=== PATIENT | female | born 1955 | race Two or more races ===

== ENCOUNTER 2024-04-25 22:04 | Emergency (ER) | payer MEDICARE, MEDICAID, SELFPAY ==
[2024-04-25 22:56] VITALS: BP 142/78; PULSE 87; RESP 18; TEMP 36.9; O2SAT 100; BMI 29.2
--- NOTE | 2024-04-25 23:18 | XR_ITS ---
Examination: Knee, left , 3 views Technique: Knee AP, lateral, oblique 3 views Date and time of exam: April 25, 2024 11:58 PM Indications: Twisting injury to the knee today, knee pain. Findings: Significant osteopenia No fracture or dislocation Significant chondromalacia patella Impression: No fracture
--- NOTE | 2024-04-26 01:45 | PD.EDLOWEX ---
Lower Extremity Injury RME/HPI General Chief Complaint: Extremity Problem,Nontraumatic Stated Complaint: LEFT KNEE PAIN Time Seen by Provider: 04/25/24 23:17 Arrival date/time: 04/25/24 22:04 68F with history of HTN and DM presents to ED with L knee pain after she twisted it. Patient denies falling. Limitations: no limitations Related Data Home Medications ?Medication ?Instructions ?Recorded ?Confirmed lisinopril 20 mg tablet 40 mg PO DAILY ##0 01/23/13 06/12/20 metformin 500 mg tablet 500 mg PO BIDAC #0 tabs 04/30/15 06/12/20 (Glucophage) atorvastatin 40 mg tablet 40 mg PO QDAY 06/12/20 06/12/20 cholecalciferol (vitamin D3) 50 50 mcg PO QDAY 06/12/20 06/12/20 mcg (2,000 unit) capsule (Vitamin D3) hydrochlorothiazide 25 mg tablet 25 mg PO QAM 06/12/20 06/12/20 metoprolol tartrate 25 mg tablet 25 mg PO DAILY 06/12/20 06/12/20 Previous Rx's ?Medication ?Instructions ?Recorded sulfamethoxazole 800 1 tab PO BID #10 tabs 06/15/20 mg-trimethoprim 160 mg tablet (Bactrim DS) pantoprazole 40 mg tablet,delayed 40 mg PO QDAY #20 tabs 12/23/23 release (Protonix) Allergies Allergy/AdvReac Type Severity Reaction Status Date / Time codeine Allergy Severe SOB Verified 12/23/23 18:35 Review of Systems Review of Systems Systems Reviewed: All systems reviewed, normal except as documented Constitutional Constitutional: Reports system reviewed and no additional complaints, except as documented, Denies fever(s) and Denies headache(s) ENT Ears, Nose, Mouth, and Throat: Denies disequilibrium and Denies headache(s) Cardiovascular Cardiovascular: Reports system reviewed and no additional complaints, except as documented, Denies chest pain and Denies dyspnea Respiratory Respiratory: Reports system reviewed and no additional complaints, except as documented, Denies cough and Denies dyspnea Gastrointestinal Gastrointestinal: Reports system reviewed and no additional complaints, except as documented, Denies abdominal pain, Denies nausea and Denies vomiting Musculoskeletal Musculoskeletal: Reports as per HPI, Reports arthralgias and Reports joint swelling Neurologic Neurologic: Reports system reviewed and no additional complaints, except as documented, Denies confusion, Denies disequilibrium and Denies headache(s) Psychiatric Psychiatric: Denies confusion Past Medical History Past Medical History NEUROLOGIC: Negative Neurological Disorders, Cerebrovascular Accident, Transient Ischemic Attacks (TIA), Dementia, Alzheimer's Disease, Parkinson's Disease, Brain Tumor, Meningitis, Seizures, Epilepsy, Multiple Sclerosis, Cerebral Palsy, Amyotrophic Lateral Sclerosis (ALS/Claudia Gehrig's), Guillain-Newborn Syndrome, Spina Bifida, Paralysis, Peripheral Neuropathy, Orantes's Palsy, Subdural Hematoma, Migraine, Head Trauma, Spinal Cord Injury or Traumatic Brain Injury CARDIAC: Positive Cardiac Disorders, Angina (?), Hypercholesterolemia (TAKES MED) and Hypertension (TAKES MED); Negative Myocardial Infarction, Cardiac Arrhythmia, Atrial Fibrillation, Heart Murmur, Coronary Artery Disease, Atherosclerotic Heart Disease, Peripheral Vascular Disease, Aneurysm, Congestive Heart Failure, Congenital Heart Disease, Valvular Heart Disease, Rheumatic Fever, Cardiomyopathy, Edema, Pericarditis, Cellulitis, Deep Vein Thrombosis, Hypotension or Varicose Veins RESPIRATORY: Positive Tuberculosis (1989 TREATED); Negative Chronic Obstructive Pulmonary Disease (COPD), Asthma, Bronchitis, Emphysema, Pneumonia, Pulmonary Fibrosis, Cystic Fibrosis, Pulmonary Embolism, Pulmonary Edema or Sleep Apnea GASTROINTESTINAL: Positive Gastrointestinal Disorders and Gastroesophageal Reflux Disease; Negative Hepatitis, Cirrhosis, Pancreatitis, Celiac Disease, Gall Bladder Disease, Gastrointestinal Bleed, Esophageal Varices, Aj's Esophagus, Colitis, Ulcerative Colitis, Diverticulitis, Diverticulosis, Ulcer, Colorectal Cancer, Irritable Bowel, Crohn's Disease, Obstructive Bowel, Hiatal Hernia, Hemorrhoids or Obesity GENITOURINARY: Negative Genitourinary Disorders, Renal Disease, Kidney Stones, Polycystic Kidney Disease, Neurogenic Bladder, Inguinal Hernia, Dialysis, Prostate Cancer or Benign Prostatic Hyperplasia REPRODUCTIVE: Positive Previous Pregnancies (X2); Negative Breast Cancer, Endometriosis, Genital Herpes, Gonorrhea, Pelvic Inflammatory Disease, Syphilis, Testicular Cancer or Uterine Prolapse MUSCULOSKELETAL: Positive Musculoskeletal Disorders, Arthritis and Fractures (RIGHT ARM FOR THIS PROC); Negative Muscular Dystrophy, Myasthenia Gravis, Marfan's Syndrome, Bone Cancer, Rheumatoid Arthritis, Osteoporosis, Degenerative Disk Disease, Gout, Scoliosis, Carpal Tunnel Syndrome, Fibromyalgia, Degenerative Joint Disease, Osteomyelitis or Poliovirus ENT: Negative Cataracts, Glaucoma, Blind, Retinal Detachment, Macular Degeneration, Ear Infection, Deafness, Head Trauma or Eye Prosthesis ENDOCRINE: Positive Endocrine Disorders and Diabetes Mellitus Type 2 (TAKES PO MED); Negative Diabetes Mellitus Type 1, Hypoglycemia, Noemi's Syndrome, Wilman's Disease, Hyperthyroidism, Hypothyroidism, Parathyroid Disease, Pituitary Disease, Systemic Lupus Erythematosus, Syndrome of Inappropriate Antidiuretic Hormone (SIADH), Adrenal Disease or Graves' Disease HEMATOLOGIC: Negative Blood Disorders, Anemia, Leukemia, Hemophilia, Thalassemia, Sickle Cell Disease or Clotting Problems PSYCHO/SOCIAL: Negative Psychiatric Problems, Schizophrenia, Recreational Drug Use, Bipolar Disorder, Depression, Anxiety, Behavior Problems, Self-Mutilation, Attention Deficit Disorder, Attention Deficit Hyperactivity Disorder, Depression, Post Traumatic Stress Disorder or Eating Disorder OTHER HISTORY: Positive Hospitalization (HOSP FOR 2017 FOR HIGH B/P), Falls (05/27/20), Chicken Pox and Measles; Negative Autoimmune Disease, Down Syndrome, Autism, Developmental Delay, Shingles, Blood Transfusions, Blood Transfusion Reaction, Anesthesia Reactions, Organ Transplant, Chemotherapy, Radiation Therapy, Hyperbaric Therapy, MRSA, VRSA, Vancomycin-Resistant Enterococci, Human Immunodeficiency Virus (HIV), Mumps, Rubella (Armenian Measles), Pertussis, Clostridium Difficile, Breast Cancer, Cervical Cancer, Colorectal Cancer, Lung Cancer, Ovarian Cancer, Prostate Cancer or Testicular Cancer Family History FAMILY HISTORY: Positive Family Respiratory Disorders (SISTER (ASTHMA)), Family Cardiac Disorders (BROTHER (HTN)) and Family Surgery (MOTHER,BROTHER); Negative Family Psychiatric Problems, Family Gastrointestinal Problems, Family Cancer or Family Anesthesia Reaction Surgical History SURGICAL: Positive Hysterectomy (GINNY WITH HENRY SALP) and Section (X2); Negative Cardiac Surgery, Open Heart Surgery, Coronary Artery Bypass Graft, Valve Replacement, Vascular Surgery, Coronary Stent, Cardiac Catheterization, Pacemaker, Angiogram, Auto Implanted Cardiovert Defib, Carotid Endarterectomy, Endocrine Surgery, Thyroidectomy, Ear Surgery, Tympanostomy Tube, Eye Surgery, Nose Surgery, Oral Surgery, Tonsillectomy, Adenoidectomy, Cochlear Implant, Corneal Transplant, Throat Surgery, Abdominal Surgery, Tracheostomy, Gastric Bypass Surgery, Gastrostomy, Bowel Surgery, Nephrectomy, Transurethral Resection, Joint Replacement, Amputation, Open Reduction Internal Fixation, Arthroscopy, Neurologic Surgery, Brain Shunt, Mastectomy, Lumpectomy, Tubal Ligation, Vasectomy or Organ Transplant Social History SMOKING STATUS: Never smoker SECOND HAND EXPOSURE: No ED Exam General Limitations: Present no limitations General appearance: Present alert and in no apparent distress Head Head exam: Present atraumatic Eye Eye exam: Present normal appearance, PERRL and EOMI ENT ENT exam: Present normal exam, normal oropharynx and mucous membranes moist Neck Neck exam: Present normal inspection, full ROM and trachea midline Chest Chest inspection: Present normal inspection and symmetric chest wall rise Respiratory Respiratory exam: Present normal lung sounds bilaterally Cardiovascular Cardiovascular exam: Present regular rate, normal rhythm and normal heart sounds Abdominal Exam Abdominal exam: Present soft and normal bowel sounds Extremities Exam Extremities exam: Present full ROM Expanded Lower Extremity Exam Knee exam: Present full ROM (L), tenderness and swelling Back Exam Back exam: Present normal inspection and full ROM Neurological Exam Neurological exam: Present alert, oriented X3 and CN II-XII intact Psychiatric Psychiatric exam: Present normal affect and normal mood Skin Skin exam: Present warm, dry, intact and normal color Course Quality Measures none Orders Category Date Time Status Crutches .NOW Care 04/26/24 00:22 Completed meño wrap [Splint / Immobilizer] STAT Care 04/26/24 00:22 Completed XR knee LT 3V Stat Exams 04/25/24 23:18 Completed Vital Signs Vital signs: Vital Signs Temperature 98.5 F 04/25/24 22:56 Pulse Rate 87 04/25/24 22:56 Respiratory Rate 18 04/25/24 22:56 Blood Pressure 142/78 H 04/25/24 22:56 Pulse Oximetry (%) 100 04/25/24 22:56 Oxygen Delivery Method Room Air 04/25/24 22:56 O2 at 100% on RA and WNLs Extremity Injury, Lower MDM Narrative MDM Narrative:: 68F with history of HTN and DM presents to ED with L knee pain after she twisted it. Patient denies falling. Physical exam reveals L knee tenderness and swelling, but normal ROM. Gait mostly intact. Patient is afebrile, calm, and alert. XR no fx. Given MEÑO, credit counselor, and crutches. Patient data External records reviewed:: [facility] previous records Clinical information provided by:: patient Social determinants that could affect healthcare access:: none Patient has the following chronic illnesses:: HTN and DM How is presenting disease/condition affected by chronic disease/condition?: uneffected by Evaluation data The following diagnostics were reviewed and interpreted by me:: radiology exam(s) Lab and/or radiology exams considered but not ordered:: ordered Interpretation Summary: above Medications / Prescriptions Medications or Prescriptions considered but not ordered:: not ordered Medication administrations:: n/a Consultations Consultation(s) initiated? (list below): No Diagnosis Extremity Injury, Lower Differential Diagnosis: ankle sprain and strain, acute internal derangement of knee, fracture of femur, fracture of hip, puncture wound of foot, fracture of toe and ankle fracture Most likely diagnosis given after review of the tests above:: acute internal derangement of knee Admission Indicated Admission indicated?: not indicated Admission Request Was there a request for admission?: No Disposition Plan Disposition Plan: Discharge Discharge Attestation Discharge Attestation: The patient and all family members were given an opportunity to ask questions and understood the discharge instructions. Discharge instructions specifically effects, indications for sooner follow up or return to the emergency department, and the expected course of current diagnosis. Patient condition: Stable Discharge Plan Plan Patient Disposition: HOME (Self Care) Disposition Comment: Stable Prescriptions/Referrals Prescriptions/Med Rec: No Action lisinopril 20 MG tablet 40 mg PO DAILY Qty: 0 metformin [Glucophage] 500 MG tablet 500 mg PO BIDAC Qty: 0 atorvastatin 40 mg Tablet 40 mg PO QDAY hydrochlorothiazide 25 mg Tablet 25 mg PO QAM cholecalciferol (vitamin D3) [Vitamin D3] 50 mcg (2,000 unit) Capsule 50 mcg PO QDAY metoprolol tartrate 25 mg tablet 25 mg PO DAILY sulfamethoxazole-trimethoprim [Bactrim DS] 800-160 mg tablet 1 tab PO BID Qty: 10 0RF pantoprazole [Protonix] 40 mg tablet,delayed release (DR/EC) 40 mg PO QDAY Qty: 20 0RF Referrals: Johny Pichardo MD [Primary Care Provider] - In 1 week Problem List Clinical Impression: Acute internal derangement of knee Patient/Caregiver Discharge Instructions Education Materials: How Your Knee Works Additional Instructions: Please follow-up with PCP within 24-48 hours and return immediately if symptoms worsen. If problem persists, recommend outpatient PT and/or MRI follow-up. In the meantime, rest, use ice/heat, and/or compression. Print Language: Upper Sorbian Stand Alone Forms: Patient Portal Info Letter PA/RUBBER GOODS FINISHER Supervising Physician PA/RUBBER GOODS FINISHER Supervising Physician: Dr. Mejia
== END 2024-04-26 00:54 | disposition home or self-care (01) ==
PROVIDERS: Emergency Provider Emergency Medicine; PCP Family Medicine
DX: M23.92 Unspecified internal derangement of left knee (principal); S89.92XA Unspecified injury of left lower leg, initial encounter; I10 Essential (primary) hypertension; E11.9 Type 2 diabetes mellitus without complications; X50.1XXA Overexertion from prolonged static or awkward postures, initial encounter; Z88.5 Allergy status to narcotic agent
CPT/HCPCS: 73562; 99283

== ENCOUNTER 2024-08-07 14:31 | Emergency (ER) | payer MEDICARE, MEDICAID, SELFPAY ==
[2024-08-07 14:44] VITALS: BP 162/97; PULSE 91; RESP 18; TEMP 37.7; O2SAT 97
--- NOTE | 2024-08-07 14:55 | XR_ITS ---
Examination: PA lateral chest 2 views TECHNIQUE: Upright PA lateral chest 2 views Date and time: August 07, 2024 1544 hours INDICATIONS: Chest pain beginning 4 days ago FINDINGS: Normal heart size Lungs are clear. Osseous structures are intact IMPRESSION: No active disease
--- NOTE | 2024-08-07 14:55 | EKG_ITS ---
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[id number] Requested By: Jimenez Winslow (WINDOW TRIMMER APPRENTICE) Order Number: [id number] Reading MD: Jimenez Winslow (WINDOW TRIMMER APPRENTICE) Measurements Intervals [place] Rate: 84 P: 12 FL: 145 QRS: -37 QRSD: 143 T: 104 QT: 381 QTc: 452 Interpretive Statements SINUS RHYTHM LEFT AXIS DEVIATION [QRS AXIS < -30] LEFT BUNDLE BRANCH BLOCK [120+ ms QRS DURATION, 80+ ms Q/S IN V1/V2, 85+ ms R IN I/aVL/V5/V6] Compared to ECG 12/23/2023 18:49:12 Left-axis deviation now present Left bundle-branch block now present Myocardial infarct finding no longer present /store/S0/[id number]/[id number].pdf
--- NOTE | 2024-08-07 14:55 | XR_ITS ---
Examination: CT brain head without contrast. 2-D sagittal coronal reconstructions Date and time of exam:August 07, 2024 1657 hours Comparison April 09, 2017 INDICATIONS: Generalized set pain today CTDI: vol (mGy):43.5 DLP: (mGycm):843 Technique: Multiple CT axial sections of the brain have been obtained, 5 mm slice thickness. Contrast has not been administered. 2-D sagittal, coronal reconstructions have been obtained Low dose protocols were performed. One or more of the following dose reduction techniques were used; automated exposure control, adjustment of the mA and/or KV according to patient size, use of iterative reconstruction technique. Findings: No significant ventricular enlargement. Intra-axial or extra-axial hemorrhage density is not seen. No mass effect or midline shift Basal cisterns are not remarkable. Fourth ventricle is midline. Cranial vault intact. Impression: Negative for acute hemorrhage, mass effect or midline shift Significant chronic left maxillary left ethmoid sinusitis
--- NOTE | 2024-08-07 14:56 | XR_ITS ---
Examination: AP lateral soft tissue neck 2 views TECHNIQUE: AP lateral soft tissue neck 2 views Date and time: August 07, 2024 1545 hours INDICATIONS: Sore throat 4 days, with difficulty speaking FINDINGS: Epiglottis does not appear thickened No prevertebral soft tissue prominence Moderate disc narrowing C5-C6 with posterior osteophyte formation IMPRESSION: Epiglottis does not appear thickened
--- NOTE | 2024-08-07 14:56 | PD.EDRME ---
Rapid Medical Screening Exam RME Arrival date/time: 08/07/24 14:31 68-year-old female presents to the emergency department complaints of sore throat reports that she lost her voice patient was reports dizziness headache and weakness Chief Complaint: Dental/Oral/Throat Time Seen by Provider: 08/07/24 14:50 Vital signs: Vital Signs Temperature 99.9 F 08/07/24 14:44 Pulse Rate 91 08/07/24 14:44 Respiratory Rate 18 08/07/24 14:44 Blood Pressure 162/97 H 08/07/24 14:44 Pulse Oximetry (%) 97 08/07/24 14:44 Oxygen Delivery Method Room Air 08/07/24 14:44
--- NOTE | 2024-08-07 15:01 | PC.NURSE ---
Pt was made aware that provider ordered a Covid test. Pt stated she tested herself at home for Covid and that is was negative. Pt did not want to test for Covid but agreed to test for Flu and Strep.
[2024-08-07 15:34] LABS: Strep A Rapid Negative (Negative)
[2024-08-07 15:44] LABS: Basophils # (Auto) 0.1 Thou/mm3 (0.0-0.2); Basophils % (Auto) 1 % (0-2.5); Eosinophils # (Auto) 0.2 Thou/mm3 (0.0-0.5); Eosinophils % (Auto) 2 % (0-10); Hematocrit 37.5 % (36.0-46.0); Hemoglobin 12.6 g/dL (12.0-16.0); Immature Granulocytes % (Auto) 0 % (0-0); Immature Granulocytes Auto 0.04 Thou/mm3 (0.00-0.00); Lymphocytes # (Auto) 1.5 Thou/mm3 (1.0-4.8); Lymphocytes % (Auto) 15 % (10-50); Mean Corpuscular HGB Conc 33.6 g/dl (31.0-37.0); Mean Corpuscular Hemoglobin 29.2 pg (25.0-35.0); Mean Corpuscular Volume 87 fL (80-100); Monocytes # (Auto) 0.5 Thou/mm3 (0.0-0.8); Monocytes % (Auto) 5 % (0-12); Neutrophils # (Auto) 7.7 Thou/mm3 (1.8-7.7); Neutrophils % (Auto) 77 % (37-80); Nucleated Red Blood Cell % 0 /100 WBC (0); Platelet Count 268 Thou/mm3 (140-440); RDW Standard Deviation 38.1 fL (36.4-46.3); Red Blood Count 4.31 Miln/mm3 (4.00-5.20)
[2024-08-07 16:08] LABS: Alanine Aminotransferase 16 U/L (10-49); Albumin, Serum 4.7 gm/dL (3.4-4.8); Albumin/Globulin Ratio 1.5 (1.2-2.2); Alkaline Phosphatase 150 U/L (46-116); Anion Gap 8 (7-16); Aspartate Amino Transferase 23 U/L (0-34); BUN/Creatinine Ratio 16 Ratio (12-20); Blood Urea Nitrogen 13 mg/dL (9-23); Calcium 9.1 mg/dL (8.3-10.6); Calcium (Corrected) 9.1 mg/dL (8.5-10.1); Carbon Dioxide 30.9 mMol/L (20.0-31.0); Chloride 100 mMol/L (98-107); Creatinine (Component) 0.8 mg/dL (0.6-1.3); Globulin 3.2 gm/dL (2.3-3.5); Glucose 221 mg/dL (74-106); Osmolality,Calculated 284 (275-295); Potassium 3.9 mMol/L (3.4-5.1); Sodium 139 mMol/L (136-145); Total Protein 7.9 gm/dL (5.7-8.2); eGFR > 60 See Note
[2024-08-07 16:10] LABS: Troponin I 0.053 ng/mL (0.0-0.045)
[2024-08-07 19:33] LABS: Troponin I 0.049 ng/mL (0.0-0.045)
[2024-08-07 21:08] VITALS: BP 186/88; PULSE 88; RESP 17; TEMP 36.9; O2SAT 98
--- NOTE | 2024-08-07 22:40 | PD.EDURI ---
Upper Respiratory Inf. RME/HPI General Chief Complaint: Headache Stated Complaint: SORE THROAT X 4 DAYS; CAN'T SPEAK Time Seen by Provider: 08/07/24 14:50 Source: patient Arrival date/time: 08/07/24 14:31 Mode of arrival: ambulatory Limitations: no limitations RME / HPI RME / HPI Narrative: 08/07/24 14:31 68-year-old female presents to the emergency department complaints of sore throat reports that she lost her voice patient was reports dizziness headache and weakness DR. SALEEM?S MAIN ED EVALUATION: 68-year-old female presents to ED c/o voice hoarseness. Symptoms been present for a few days. No fevers, rhinorrhea, no sore throat just laryngitis. Patient was feeling dizzy earlier today but now is improved. Patient denies chest pain, shortness of breath, back pain, pleuritic component, exertional component, and otherwise is tolerating p.o. at home. No other concerns or complaints expressed at this time. - PMH: Diabetes, hypertension, high cholesterol - PSH: Denies - Social history: Denies - Current medications: Reviewed PCP is Johny Pichardo MD Duration: now resolved Severity: mild Relieving factors: nothing Exacerbating factors: nothing Able to tolerate fluids by mouth: Yes Context: sick contacts Associated symptoms: denies other symptoms Related Data Home Medications ?Medication ?Instructions ?Recorded ?Confirmed lisinopril 20 mg tablet 40 mg PO DAILY ##0 01/23/13 06/12/20 metformin 500 mg tablet 500 mg PO BIDAC #0 tabs 04/30/15 06/12/20 (Glucophage) atorvastatin 40 mg tablet 40 mg PO QDAY 06/12/20 06/12/20 cholecalciferol (vitamin D3) 50 50 mcg PO QDAY 06/12/20 06/12/20 mcg (2,000 unit) capsule (Vitamin D3) hydrochlorothiazide 25 mg tablet 25 mg PO QAM 06/12/20 06/12/20 metoprolol tartrate 25 mg tablet 25 mg PO DAILY 06/12/20 06/12/20 Previous Rx's ?Medication ?Instructions ?Recorded sulfamethoxazole 800 1 tab PO BID #10 tabs 06/15/20 mg-trimethoprim 160 mg tablet (Bactrim DS) pantoprazole 40 mg tablet,delayed 40 mg PO QDAY #20 tabs 12/23/23 release (Protonix) benzonatate 100 mg capsule 100 mg PO TID PRN cough #10 caps 08/07/24 Allergies Allergy/AdvReac Type Severity Reaction Status Date / Time codeine Allergy Severe SOB Verified 08/07/24 14:33 Review of Systems Review of Systems Systems Reviewed: All systems reviewed, normal except as documented Narrative Review of Systems: Patient complaining of pharyngitis Constitutional Constitutional: Denies fever(s) ENT Ears, Nose, Mouth, and Throat: Reports hoarseness and Denies sore throat Cardiovascular Cardiovascular: Denies chest pain and Denies dyspnea Respiratory Respiratory: Denies chest congestion, Denies dyspnea and Denies excessive phlegm production Musculoskeletal Musculoskeletal: Denies back pain Past Medical History Past Medical History NEUROLOGIC: Negative Neurological Disorders, Cerebrovascular Accident, Transient Ischemic Attacks (TIA), Dementia, Alzheimer's Disease, Parkinson's Disease, Brain Tumor, Meningitis, Seizures, Epilepsy, Multiple Sclerosis, Cerebral Palsy, Amyotrophic Lateral Sclerosis (ALS/Claudia Gehrig's), Guillain-[place] Syndrome, Spina Bifida, Paralysis, Peripheral Neuropathy, Orantes's Palsy, Subdural Hematoma, Migraine, Head Trauma, Spinal Cord Injury or Traumatic Brain Injury CARDIAC: Positive Cardiac Disorders, Angina, Hypercholesterolemia and Hypertension; Negative Myocardial Infarction, Cardiac Arrhythmia, Atrial Fibrillation, Heart Murmur, Coronary Artery Disease, Atherosclerotic Heart Disease, Peripheral Vascular Disease, Aneurysm, Congestive Heart Failure, Congenital Heart Disease, Valvular Heart Disease, Rheumatic Fever, Cardiomyopathy, Edema, Pericarditis, Cellulitis, Deep Vein Thrombosis, Hypotension or Varicose Veins RESPIRATORY: Positive Tuberculosis; Negative Chronic Obstructive Pulmonary Disease (COPD), Asthma, Bronchitis, Emphysema, Pneumonia, Pulmonary Fibrosis, Cystic Fibrosis, Pulmonary Embolism, Pulmonary Edema or Sleep Apnea GASTROINTESTINAL: Positive Gastrointestinal Disorders and Gastroesophageal Reflux Disease; Negative Hepatitis, Cirrhosis, Pancreatitis, Celiac Disease, Gall Bladder Disease, Gastrointestinal Bleed, Esophageal Varices, Aj's Esophagus, Colitis, Ulcerative Colitis, Diverticulitis, Diverticulosis, Ulcer, Colorectal Cancer, Irritable Bowel, Crohn's Disease, Obstructive Bowel, Hiatal Hernia, Hemorrhoids or Obesity GENITOURINARY: Negative Genitourinary Disorders, Renal Disease, Kidney Stones, Polycystic Kidney Disease, Neurogenic Bladder, Inguinal Hernia, Dialysis, Prostate Cancer or Benign Prostatic Hyperplasia REPRODUCTIVE: Positive Previous Pregnancies; Negative Breast Cancer, Endometriosis, Genital Herpes, Gonorrhea, Pelvic Inflammatory Disease, Syphilis, Testicular Cancer or Uterine Prolapse MUSCULOSKELETAL: Positive Musculoskeletal Disorders, Arthritis and Fractures; Negative Muscular Dystrophy, Myasthenia Gravis, Marfan's Syndrome, Bone Cancer, Rheumatoid Arthritis, Osteoporosis, Degenerative Disk Disease, Gout, Scoliosis, Carpal Tunnel Syndrome, Fibromyalgia, Degenerative Joint Disease, Osteomyelitis or Poliovirus ENT: Negative Cataracts, Glaucoma, Blind, Retinal Detachment, Macular Degeneration, Ear Infection, Deafness, Head Trauma or Eye Prosthesis ENDOCRINE: Positive Endocrine Disorders and Diabetes Mellitus Type 2; Negative Diabetes Mellitus Type 1, Hypoglycemia, Noemi's Syndrome, Wilman's Disease, Hyperthyroidism, Hypothyroidism, Parathyroid Disease, Pituitary Disease, Systemic Lupus Erythematosus, Syndrome of Inappropriate Antidiuretic Hormone (SIADH), Adrenal Disease or Graves' Disease HEMATOLOGIC: Negative Blood Disorders, Anemia, Leukemia, Hemophilia, Thalassemia, Sickle Cell Disease or Clotting Problems PSYCHO/SOCIAL: Negative Psychiatric Problems, Schizophrenia, Recreational Drug Use, Bipolar Disorder, Depression, Anxiety, Behavior Problems, Self-Mutilation, Attention Deficit Disorder, Attention Deficit Hyperactivity Disorder, Depression, Post Traumatic Stress Disorder or Eating Disorder OTHER HISTORY: Positive Hospitalization, Falls, Chicken Pox and Measles; Negative Autoimmune Disease, Down Syndrome, Autism, Developmental Delay, Shingles, Blood Transfusions, Blood Transfusion Reaction, Anesthesia Reactions, Organ Transplant, Chemotherapy, Radiation Therapy, Hyperbaric Therapy, MRSA, VRSA, Vancomycin-Resistant Enterococci, Human Immunodeficiency Virus (HIV), Mumps, Rubella (Latvian Measles), Pertussis, Clostridium Difficile, Breast Cancer, Cervical Cancer, Colorectal Cancer, Lung Cancer, Ovarian Cancer, Prostate Cancer or Testicular Cancer Family History FAMILY HISTORY: Positive Family Respiratory Disorders, Family Cardiac Disorders and Family Surgery; Negative Family Psychiatric Problems, Family Gastrointestinal Problems, Family Cancer or Family Anesthesia Reaction Surgical History SURGICAL: Positive Hysterectomy and Section; Negative Cardiac Surgery, Open Heart Surgery, Coronary Artery Bypass Graft, Valve Replacement, Vascular Surgery, Coronary Stent, Cardiac Catheterization, Pacemaker, Angiogram, Auto Implanted Cardiovert Defib, Carotid Endarterectomy, Endocrine Surgery, Thyroidectomy, Ear Surgery, Tympanostomy Tube, Eye Surgery, Nose Surgery, Oral Surgery, Tonsillectomy, Adenoidectomy, Cochlear Implant, Corneal Transplant, Throat Surgery, Abdominal Surgery, Tracheostomy, Gastric Bypass Surgery, Gastrostomy, Bowel Surgery, Nephrectomy, Transurethral Resection, Joint Replacement, Amputation, Open Reduction Internal Fixation, Arthroscopy, Neurologic Surgery, Brain Shunt, Mastectomy, Lumpectomy, Tubal Ligation, Vasectomy or Organ Transplant Social History SMOKING STATUS: Never smoker SECOND HAND EXPOSURE: No ED Exam General Limitations: Present no limitations General appearance: Present alert and in no apparent distress Head Head exam: Present atraumatic Eye Eye exam: Present normal appearance, PERRL and EOMI ENT ENT exam: Present normal exam, normal oropharynx and mucous membranes moist Neck Neck exam: Present normal inspection, full ROM and trachea midline Chest Chest inspection: Present normal inspection and symmetric chest wall rise Respiratory Respiratory exam: Present normal lung sounds bilaterally Cardiovascular Cardiovascular exam: Present regular rate, normal rhythm and normal heart sounds Abdominal Exam Abdominal exam: Present soft and normal bowel sounds Extremities Exam Extremities exam: Present normal inspection and full ROM Back Exam Back exam: Present normal inspection and full ROM Neurological Exam Neurological exam: Present alert, oriented X3 and CN II-XII intact Psychiatric Psychiatric exam: Present normal affect and normal mood Skin Skin exam: Present warm, dry, intact and normal color Course Course Course Narrative: Patient treated with somatic medications Quality Measures none Orders Category Date Time Status Bedside COVID-19 Antigen Test NOW Care 08/07/24 14:55 Completed Bedside Influenza A&B Antigen Test NOW Care 08/07/24 14:55 Completed EKG (ED ONLY) *Do not use* NOW Care 08/07/24 14:55 Completed IV [Insert IV] STAT Care 08/07/24 23:[address] head/brain wo con Stat Exams 08/07/24 14:55 Completed EKG (ED Only) Stat Exams 08/07/24 14:55 Draft XR chest 2V Stat Exams 08/07/24 14:55 Completed XR soft tissue neck Stat Exams 08/07/24 14:56 Completed CBC Stat Lab 08/07/24 15:31 Completed Comprehensive Metabolic Panel Stat Lab 08/07/24 15:31 Completed Strep A Rapid Stat Lab 08/07/24 15:08 Completed Troponin I Stat Lab 08/07/24 15:31 Completed Troponin I Stat Lab 08/07/24 18:36 Completed Albuterol/Ipratr Rt Diamante [Duoneb Rt Diamante] Med 08/07/24 23:13 Discontinued 3 ml INH X1 ONE Benzonatate [Tessalon] Med 08/07/24 23:48 Discontinued 100 mg PO X1 ONE Dexamethasone Inj [Decadron Inj] Med 08/07/24 23:13 Discontinued 10 mg PO X1 ONE Sodium Chloride 0.9% 1000 ml [Ns] 1,000 ml Med 08/07/24 23:14 Discontinued IV 999 mls/hr Reevaluation(s) Reevaluation #1: Patient in no acute distress. Time: 23:16 Vital Signs Vital signs: Vital Signs Temperature 99.9 F 08/07/24 14:44 Pulse Rate 91 08/07/24 14:44 Respiratory Rate 18 08/07/24 14:44 Blood Pressure 162/97 H 08/07/24 14:44 Pulse Oximetry (%) 97 08/07/24 14:44 Oxygen Delivery Method Room Air 08/07/24 14:44 Upper Respiratory Infection MDM Narrative MDM Narrative:: Scribe Attestation: 08/07/2024 Laurie James am scribing for and in the presence of Dr. Saleem. Provider Notation: Although this document has been carefully reviewed, there may still be some phonetic and other typographical errors.? These errors are purely grammatical due to imperfections in the software program and should not be construed in any way to compromise the substance of the patient's medical care during this visit. 68-year-old female presents to ED c/o voice hoarseness. Symptoms been present for a few days. ROS: voice hoarseness Differential diagnoses includes Otitis media, URI, Pharyngitis, Sinusitis, Viral infection, Bronchitis, Influenza Patient data External records reviewed:: [facility] previous records (Reviewed prior ED records from 04/26/24. Patient was seen for Acute internal derangement of knee.) Clinical information provided by:: patient Social determinants that could affect healthcare access:: none Patient has the following chronic illnesses:: Diabetes, hypertension, high cholesterol How is presenting disease/condition affected by chronic disease/condition?: uneffected by Evaluation data The following diagnostics were reviewed and interpreted by me:: lab results, radiology exam(s) and EKG tracing(s) (EKG manual reading, August 07, 2024 1458 hours, my interpretation: sinus rhythm, 84 BPM, QTc is 452, ) Lab and/or radiology exams considered but not ordered:: None Interpretation Summary: LABS No anemia, thrombocytopenia, or leukocytosis glucose slightly elevated 221. Otherwise normal BMP RADIOLOGY X-ray soft tissue neck FINDINGS: Epiglottis does not appear thickened No prevertebral soft tissue prominence Moderate disc narrowing C5-C6 with posterior osteophyte formation IMPRESSION: Epiglottis does not appear thickened Chest x-ray FINDINGS: Normal heart size Lungs are clear. Osseous structures are intact IMPRESSION: No active disease CT head Findings: No significant ventricular enlargement. Intra-axial or extra-axial hemorrhage density is not seen. No mass effect or midline shift Basal cisterns are not remarkable. Fourth ventricle is midline. Cranial vault intact. Impression: Negative for acute hemorrhage, mass effect or midline shift Significant chronic left maxillary left ethmoid sinusitis Medications / Prescriptions Medications or Prescriptions considered but not ordered:: None Medication administrations:: Medication Administration History Discontinued Medications Albuterol/Ipratropium (Albuterol/Ipratropium (Duoneb) Rt Diamante 3 Ml Nebu) 3 ml INH X1 ONE Stop: 08/07/24 23:14 Last Admin: 08/07/24 23:36 Dose: 3 ml Documented By: GB Benzonatate (Benzonatate 100 Mg Capsule) 100 mg PO X1 ONE; Protocol Stop: 08/07/24 23:49 Last Admin: 08/08/24 00:52 Dose: 100 mg Documented By: EE Dexamethasone Sodium Phosphate (Dexamethasone Sod Phos Inj 10 Mg/Ml Vial) 10 mg PO X1 ONE Stop: 08/07/24 23:14 Last Admin: 08/07/24 23:47 Dose: 10 mg Documented By: EE Sodium Chloride (Ns) 1,000 mls @ 999 mls/hr IV .Q1H1M ONE Stop: 08/08/24 00:14 Last Infusion: 08/08/24 00:41 Dose: Infused Documented By: CVVic Admin: 08/07/24 23:47 Dose: 999 mls/hr Documented By: KEYUR See above if any Consultations Consultation(s) initiated? (list below): No Diagnosis Upper Respiratory Differential Diagnosis: upper respiratory infection, otitis media, sinusitis, viral infection, bronchitis, influenza and pharyngitis Most likely diagnosis given after review of the tests above:: Pharyngitis, Hyperglycemia Admission Indicated Admission indicated?: not indicated Explain why admission is indicated or not indicated:: Patient tolerating p.o. No hypoxia. Admission Request Was there a request for admission?: No Disposition Plan Disposition Plan: Discharge Discharge Attestation Discharge Attestation: The patient and all family members were given an opportunity to ask questions and understood the discharge instructions. Discharge instructions specifically effects, indications for sooner follow up or return to the emergency department, and the expected course of current diagnosis. Patient condition: Stable Critical Care Time Critical Care Time Critical Care Time: No Discharge Plan Plan Patient Disposition: HOME (Self Care) Patient condition on transfer: Stable Prescriptions/Referrals Prescriptions/Med Rec: New benzonatate 100 mg capsule 100 mg PO TID PRN (Reason: cough) Qty: 10 0RF No Action lisinopril 20 MG tablet 40 mg PO DAILY Qty: 0 metformin [Glucophage] 500 MG tablet 500 mg PO BIDAC Qty: 0 atorvastatin 40 mg Tablet 40 mg PO QDAY hydrochlorothiazide 25 mg Tablet 25 mg PO QAM cholecalciferol (vitamin D3) [Vitamin D3] 50 mcg (2,000 unit) Capsule 50 mcg PO QDAY metoprolol tartrate 25 mg tablet 25 mg PO DAILY sulfamethoxazole-trimethoprim [Bactrim DS] 800-160 mg tablet 1 tab PO BID Qty: 10 0RF pantoprazole [Protonix] 40 mg tablet,delayed release (DR/EC) 40 mg PO QDAY Qty: 20 0RF Referrals: Johny Pichardo MD [Primary Care Provider] - In 1 week Problem List Clinical Impression: Pharyngitis, Acute hyperglycemia Patient/Caregiver Discharge Instructions Education Materials: Self-Care for Sore Throats Additional Instructions: DISCHARGE INSTRUCTIONS Even though you have been discharged from the Emergency Department, there are several things that you should do to ensure that you receive proper care: 1. DO READ your discharge instructions as these contain important information concerning your medical care. 2. If medication has been prescribed for your condition, fill the prescription as soon as possible and follow the directions on the medication. 3. RETURN AT ONCE TO THE EMERGENCY DEPARTMENT if you have any problems or concerns. These include but are not limited to fever, worsening pain(belly, chest, head, etc?), worsening shortness of breath, uncontrollable bleeding, inability to tolerate food and water, or any condition that makes you question your well-being. Also, if your symptoms do not improve in the next 12-24 hours, return to the ER or seek medical care immediately. 4. Be sure to follow up with your regular physician or specialist as instructed at discharge as this is the best way to ensure that you receive the very best of care. If you do not have a primary care physician, please contact a physician group and make an appointment. 5. Please visit [employer] for coupons regarding your prescriptions. It is a free service for you to use and can help reduce the cost of your medication. We would like to thank you for coming today and our hope is that we served you and your family well during your stay General Adult Discharge Instructions(Bolivian) Usted peter sido dado de maria luz del Departamento de Emergencias sin embargo hay algunas cosas que debe hacer para asegurarse de que usted continue recibiendo el cuidado adecuado. Por favor tonya las siguientes instrucciones con atenci?n: ? 1. Si es que le dieron alguna prescripci?n (medicamento), asegurese de ir a la farmacia de lee preferencia, llenar el medicamento y tomarlo conforme a las instrucciones. ? 2. Leas las instrucciones de maria luz con mucho cuidado dado que contienen informaci?n importante para lee betsy y cuidado. 3. REGRESE AL DEPARTAMENTO DE EMERGENCIA SI tiene alg?n tipo de problema o preocupaci?n. [place] incluye grant no esta limitado a fiebre, mucho dolor abdominal, dolor de pecho, mucho dolor de edwin, falta de aire, sangrado incontrolable, nauseas o vomitos incontrolables, inhabilidad de tolerar alimentos, o cualquier otro tipo de condici?n que le anthony cuestionar lee betsy. 4. Asegurese de seguir con lee medico primario (tambien llamado medico de iván) o con el medico especialista que le indicaron al momento del maria luz en 3 a 5 pitts dado que esta es la mejor manera de asegurar que taylor recibiendo el mejor cuidado medico. ? 5. Si es que tiene un telefono inteligente (smartphone) revise la pagina web o aplicaci?n GoodRx antes de pagar por kailyn prescripciones (medicinas) dado que asi podr?a encontrar un cup?n para que kailyn medicinas all menos costosas. El servicio es gratuito. ? Le agradecemos lee visita el paty de hoy y esperamos que lee betsy mejore. Print Language: [place]ian Stand Alone Forms: Rosio Award Info., Patient Portal Info Letter
[2024-08-07] MEDS: ALBUTEROL/IPRATROPIUM (Duoneb) RT SOL 3 ML NEBU INH (23:36)
[2024-08-07 23:39] VITALS: PULSE 76; RESP 18; O2SAT 100
[2024-08-07] MEDS: SODIUM CHLORIDE 0.9% 1000 ML 1,000 ML 999 ML IV (23:47)
[2024-08-07] MEDS: DEXAMETHASONE SOD PHOS INJ 10 MG/ML VIAL PO (23:47)
[2024-08-07 23:50] VITALS: BP 143/78; PULSE 86; RESP 18; TEMP 36.7; O2SAT 98
[2024-08-08] MEDS: BENZONATATE 100 MG CAPSULE PO (00:52)
== END 2024-08-08 00:55 | disposition home or self-care (01) ==
PROVIDERS: Nurse Practitioner Primary Care; Emergency Provider Emergency Medicine; PCP Family Medicine
DX: J02.9 Acute pharyngitis, unspecified (principal); E11.65 Type 2 diabetes mellitus with hyperglycemia; I10 Essential (primary) hypertension; E78.00 Pure hypercholesterolemia, unspecified; R51.9 Headache, unspecified; R07.9 Chest pain, unspecified
CPT/HCPCS: 36415; 70360; 70450; 71046; 80053; 84484; 85025; 87400; 87651; 93005; 94640; 96360; 99284; A9270; J1100; J7030